=== PATIENT | female | born 1950 | race Caucasian/White ===

== ENCOUNTER → 2017-03-12 | Outpatient (CLI) | payer MEDICARE ==
[~2017-03-12] MED LIST: ATENOLOL; CELEBREX PO; CERTAGEN PO; CITRACAL200 MG; FISH OIL 1,0001 CAP PO; FOLIC ACID PO; GLUCOPHAGE XR500 MG PO; HUMERA; KCL PO; METHOTREXATE INJ; NEXIUM PO; OSTEO-BI-FLEX; TENORETIC 100 T1 TAB PO; TYLOX 5/500 CAP1 CAP PO; VIT B-12 PO; VITAMIN B6; VITAMIN D 4001 UDTAB PO; ZOCOR PO; ZYRTEC PO
--- NOTE | ~2017-03-12 | MR32 ---
[facility]. [facility] A Service of [facility] RADIOLOGY TEXT RESULTS PATIENT: JENA ABREU LOCATION: [facility] : 46 UNIT #: [id number] AGE: [address]: NICHOLE LUGO MD SEX: F ORDER DR: [id number] [place] [id number] O MR#: [id number] Acc #: [id number] NAME: JENA ABREU : 1950 SEX: F STUDY DATE/TIME: 03/12/2017 12:39 UNIT: [facility] ROOM: STUDY DESCRIPTION: MR Cervical Wo Contrast Attending Physician: Nichole Lugo M.D. Referring Physician: Nichole Lugo M.D. Ordering Physician: Nichole Lugo M.D. Primary Care Physician: Nichole Lugo M.D. MRI CENTER REPORT This report is preliminary unless electronic signature is present. EXAM Cervical spine MRI, without contrast COMPARISON None PROCEDURE Routine unenhanced cervical spine MRI. HISTORY Worsening neck pain for 6 weeks with bilateral arm weakness. FINDINGS There is a midcervical reversal of lordosis. There is a slight C7-T1 anterolisthesis. There is degenerative marrow signal change, but no evidence of marrow infiltration or replacement, and cord signal is normal. The posterior fossa and its contents are normal. The paraspinous soft tissues are unremarkable. At C2-C3, there is mild bilateral foraminal narrowing and no canal stenosis. At C3-C4, there is a disc osteophyte complex, canal stenosis, mild cord compression, and moderate to severe or severe bilateral foraminal stenosis. At C4-C5, there is moderate to marked cord compression due to disc osteophyte complex with prominent central/right paracentral disc protrusion. There is no abnormal cord signal, but there is moderate or moderate to severe left and moderate to severe or severe right foraminal stenosis. At C5-C6, again, there is moderate to marked cord compression without STS. [facility] A Service of [facility] RADIOLOGY TEXT RESULTS PATIENT: JENA ABREU LOCATION: [facility] #: [id number] : 46 UNIT #: [id number] AGE: [address]: NICHOLE LUGO MD SEX: F ORDER DR: abnormal cord signal and severe right and moderate to severe left foraminal stenosis. At C6-C7, there is a disc osteophyte complex with at least moderate cord compression, no abnormal cord signal, and severe right and moderate to severe left foraminal stenosis. At C7-T1, there is mild canal stenosis, but no cord compression and moderate right and moderate or moderate to severe left foraminal narrowing. IMPRESSION Multilevel cord compression and multilevel canal and foraminal narrowing. No abnormal cord signal at any level. See above for [id number] details. Dictated by... Mohsen Sy M.D. THIS IS AN ELECTRONICALLY VERIFIED REPORT Mohsen Sy M.D. at 03/22/2017 1:52 PM LINDSAY/becky TD: 03/19/2017 16:30 JOB #: [id number] MRI CENTER REPORT Page 1 of 1
== END | disposition home or self-care (01) ==
LOC: SMRI 11:45
DX: M54.2 Cervicalgia (principal); R53.1 Weakness
CPT/HCPCS: 72141